=== PATIENT | male | born 1950 | race Caucasian/White ===

== ENCOUNTER → 2017-07-05 | Outpatient (CLI) | payer OTHER ==
[~2017-07-05] MED LIST: REGADENOSON 0.4 MG/5 ML SYRINGE ONE
== END | disposition home or self-care (01) ==
LOC: CFH 12:21
PROVIDERS: ATTEND Internal Medicine Cardiovascular Disease
DX: I25.10 Atherosclerotic heart disease of native coronary artery without angina pectoris (principal); I10 Essential (primary) hypertension
CPT/HCPCS: 78452; 93017; A9502; J2785

== ENCOUNTER 2020-09-29 16:25 | Emergency (ER) | payer OTHER ==
[~2020-09-29] VITALS: Ht 180.3 cm; Wt 79.4 kg
[2020-09-29 16:40] VITALS: BP 120/75
--- NOTE | 2020-09-29 17:33 | NUR ---
TASK RN NOTE: PT SITTING UP IN ED ROOM TALKING WITH REGISTRATION. NAD NOTED AT THIS TIME.
== END 2020-09-29 18:13 | disposition home or self-care (01) ==
LOC: ED 17:25
DX: U07.1 COVID-19 (principal); B34.9 Viral infection, unspecified
CPT/HCPCS: 71045; 87635; 99284